=== PATIENT | female | born 1970 | race Hispanic/Latino ===

== ENCOUNTER → 2022-03-27 | Day surgery (SDC) | payer BC ==
[2022-03-27 15:10] VITALS: BP 109/87
== END | disposition home or self-care (01) ==
LOC: OR 11:25
PROVIDERS: ATTEND Internal Medicine Gastroenterology
DX: Z12.11 Encounter for screening for malignant neoplasm of colon (principal); D12.0 Benign neoplasm of cecum; K57.30 Diverticulosis of large intestine without perforation or abscess without bleeding; K64.8 Other hemorrhoids; K59.09 Other constipation; K21.9 Gastro-esophageal reflux disease without esophagitis; Z01.810 Encounter for preprocedural cardiovascular examination; Z68.34 Body mass index [BMI] 34.0-34.9, adult
CPT/HCPCS: 45380; 81025; 93005